=== PATIENT | male | born 1985 | race African-American/Black ===

== ENCOUNTER 2018-11-12 17:46 | Emergency (ER) | payer OTHER ==
[~2018-11-12] VITALS: Ht 185.4 cm; Wt 126.5 kg
[2018-11-12] MEDS ORDERED: NAPROSYN500 MG PO (18:35)
[2018-11-12] MEDS ORDERED: NORFLEX100 MG PO (18:35)
[2018-11-12 18:57] VITALS: BP 132/69
== END 2018-11-12 18:58 | disposition home or self-care (01) ==
LOC: ER 17:46
DX: S39.012A Strain of muscle, fascia and tendon of lower back, initial encounter (principal); Z88.0 Allergy status to penicillin; Z88.1 Allergy status to other antibiotic agents; V43.52XA Car driver injured in collision with other type car in traffic accident, initial encounter; Y93.89 Activity, other specified; Y92.89 Other specified places as the place of occurrence of the external cause; Y99.8 Other external cause status

== ENCOUNTER 2018-11-17 18:45 | Emergency (ER) | payer OTHER ==
[~2018-11-17] VITALS: Ht 185.4 cm; Wt 126.5 kg
[~2018-11-17 18:45] MED LIST: NAPROSYN500 MG PO; NORFLEX100 MG PO
[2018-11-17] MEDS ORDERED: PREDNISONE 20 M20 MG PO (20:45)
[2018-11-17 21:07] VITALS: BP 134/86
== END 2018-11-17 21:09 | disposition home or self-care (01) ==
LOC: ER 18:45
DX: S29.012A Strain of muscle and tendon of back wall of thorax, initial encounter (principal); Z88.0 Allergy status to penicillin; Z88.1 Allergy status to other antibiotic agents; V89.2XXA Person injured in unspecified motor-vehicle accident, traffic, initial encounter; Y93.89 Activity, other specified; Y92.89 Other specified places as the place of occurrence of the external cause; Y99.8 Other external cause status